=== PATIENT | female | born 1940 | race Caucasian/White ===

== ENCOUNTER 2016-05-22 19:32 | Emergency (ER) | payer MEDICARE, OTHER ==
[2016-05-22] MEDS ORDERED: CLINDAMYCIN 150 MG CAPSULE PO STA (20:51)
[2016-05-22] MEDS ORDERED: CLINDAMYCIN 150 MG CAPSULE PO ONE (20:54)
== END 2016-05-22 21:09 | disposition home or self-care (01) ==
DX: L03.031 Cellulitis of right toe (principal); E11.42 Type 2 diabetes mellitus with diabetic polyneuropathy; Z79.4 Long term (current) use of insulin; I10 Essential (primary) hypertension
CPT/HCPCS: 99283; A9270